=== PATIENT | female | born 1980 | race Caucasian/White ===

== ENCOUNTER 2019-09-03 15:34 | Emergency (ER) | payer BC ==
[2019-09-03 15:40] VITALS: BP 141/89; PULSE 73; TEMP 98; BMI 24.5
--- NOTE | 2019-09-03 16:02 | PDOC ---
History of Present Illness - General Chief Complaint: Migraine Headache Stated Complaint: Migraine Headache - History of Present Illness Initial Comments: The patient is a 39F with a significant past medical history of migraines and anxiety, who presents to the emergency department with, a migraine for 2 days. The pain is right sided, gradual onset, non-radiating, worsening, exacerbated by light, and not alleviated by her typical meds. She endorses associated NBNB emesis x3 and has persistent nausea. [facility] prodrome, described as change in depth perception/ perceived size of objects that lasts approximately 15 sec at a time. She takes topamax, effexor, candesartan Qhs, taken last night. Imitrex, Relpax, Decadron, Erecept, and 'nasal spray' with little relief today. 09/03/19 16:06 Past History - Past Medical History Allergies/Adverse Reactions: Allergies Allergy/AdvReac Type Severity Reaction Status Date / Time ciprofloxacin [From Cipro] Allergy Verified 09/03/19 15:38 Iodinated Contrast Media Allergy Verified 09/03/19 15:38 [Iodinated Contrast- Oral and IV Dye] prochlorperazine Allergy Verified 09/03/19 15:38 [From Compazine] Home Medications: Ambulatory Orders Acetaminophen/Caffeine/Butalb [Fioricet -] 1 tablet PO PRN PRN 06/26/18 Dexamethasone [Decadron -] 4 mg PO PRN PRN 06/26/18 Methocarbamol [Robaxin -] 500 mg PO BID 06/26/18 Sumatriptan Succinate [Imitrex -] 50 mg PO PRN PRN 06/26/18 Venlafaxine HCl [Effexor -] 100 mg PO HS 06/26/18 COPD: No Psychiatric Problems: Yes (anxeity) - Psycho Social/Smoking Cessation Hx Smoking History: Never smoked Have you smoked in the past 12 months: No Hx Alcohol Use: No Drug/Substance Use Hx: No Substance Use Type: None Review of Systems - Review of Systems Able to Perform ROS?: Yes Comments:: GENERAL/CONSTITUTIONAL: No fever or chills. No weakness HEAD, EYES, EARS, NOSE AND THROAT: No change in vision. No change in hearing. No sore throat CARDIOVASCULAR: No chest pain or shortness of breath RESPIRATORY: Denies cough, hemoptysis GASTROINTESTINAL: +N/V; denies diarrhea or constipation GENITOURINARY: No dysuria, frequency, or change in urination MUSCULOSKELETAL: No joint or muscle swelling or pain. No neck or back pain SKIN: No rash NEUROLOGIC: No vertigo, loss of consciousness, or change in strength/sensation ENDOCRINE: No increased thirst. No abnormal weight change HEMATOLOGIC/LYMPHATIC: No anemia, easy bleeding, or history of blood clots ALLERGIC/IMMUNOLOGIC: No hives or skin allergy 09/03/19 16:01 Is the patient limited [place] proficient: No *Physical Exam - Vital Signs Last Vital Signs Temp Pulse Resp BP Pulse Ox 98 F 73 18 141/89 100 09/03/19 15:35 09/03/19 15:35 09/03/19 15:35 09/03/19 15:35 09/03/19 15:35 - Physical Exam Comments: GENERAL: Awake, alert, and oriented to person/place/time, in no acute distress HEAD: No signs of trauma, normocephalic, atraumatic EYES: PERRLA, EOMI, sclera anicteric, conjunctiva clear ENT: Hearing grossly normal, nares patent, oropharynx clear without exudates. Moist mucosa LUNGS: No distress, speaks in full sentences, clear to auscultation bilaterally HEART: Regular rate and rhythm, normal S1 and S2, no murmurs appreciated, peripheral pulses normal and equal bilaterally ABDOMEN: Soft, nontender, normoactive bowel sounds. No guarding, no rebound EXTREMITIES: Normal inspection, Normal range of motion, no edema. No clubbing or cyanosis NEUROLOGICAL: Cranial nerves II through XII grossly intact. Normal speech, normal gait, no focal sensorimotor deficits SKIN: Warm, Dry 09/03/19 16:01 Medical Decision Making - Medical Decision Making The patient is a 38 year old female, with a significant past medical history of migraines and anxiety, who presents to the emergency department with, a migraine. ED Course Upreg IVF, Benadryl, Reglan, Ofirmev, Morphine, Zofran for symptomatic relief Pt placed in dark/quiet room Will reassess 09/03/19 16:09 Pt medicated Pt eloped from ED as she stated she has an emergency to attend. Pt refused to sign AMA form IV removed 09/03/19 18:16 Discharge - Discharge Information Problems reviewed: Yes Clinical Impression/Diagnosis: Headache Qualifiers: Headache type: unspecified Headache chronicity pattern: unspecified pattern Intractability: not intractable Qualified Code(s): R51 - Headache Condition: Stable Disposition: ELOPED - Admission No - Follow up/Referral - Patient Discharge Instructions Patient Printed Discharge Instructions: DI for Migraine Additional Instructions: You were seen in the Emergency Department for evaluation of headache. You were treated with IV fluids, Benadryl, Reglan, Morphine, Tylenol, and Zofran. Review the handout provided at discharge. Continue to take your medications as prescribed. Maintain your follow up with your primary care provider and your neurologist. Return to the Emergency Department if you develop changes in vision , persistent headache, sudden onset headache, nausea/vomiting, changes in strength/sensation, chest pain, trouble breathing, worsening symptoms, or any new/concerning symptoms. - Post Discharge Activity
[2019-09-03] MEDS ORDERED: SODIUM CHLORIDE 0.9% 500 ML INFUS.BAG IV ONE (16:17)
[2019-09-03] MEDS ORDERED: ONDANSETRON 4 MG/2 ML VIAL IVPUSH ONE (16:17)
[2019-09-03] MEDS ORDERED: METOCLOPRAMIDE HCL INJECTION 10 MG/2 ML VIAL IVPUSH ONE (16:17)
[2019-09-03] MEDS ORDERED: ACETAMINOPHEN 1000 MG/100 ML VIAL (NON FORMULARY) IVPB ONE (16:27)
[2019-09-03] MEDS ORDERED: morphine CARPU-JECT 4 MG/1 ML DISP.SYRIN IVPUSH ONE (16:27)
[2019-09-03] MEDS ORDERED: METOCLOPRAMIDE HCL INJECTION 10 MG/2 ML VIAL ONE (16:42)
[2019-09-03] MEDS ORDERED: morphine SULFATE 4 MG/ML VIAL ONE (16:43)
[2019-09-03] MEDS ORDERED: ONDANSETRON 4 MG/2 ML VIAL ONE (16:43)
[2019-09-03] MEDS ORDERED: ACETAMINOPHEN INJECTION 100 ML IVPB ONE (16:43)
--- NOTE | 2019-09-03 17:18 | PDOC ---
Documentation entered by Scott Garcia SCRIBE, acting as scribe for Louisa Taylor MD. Louisa Taylor MD: This documentation has been prepared by the Jose lynn Daniel, SCRIBE, under my direction and personally reviewed by me in its entirety. I confirm that the documentation accurately reflects all work, treatment, procedures, and medical decision making performed by me. Attending Attestation - Resident Resident Name: Shaquille Solo - ED Attending Attestation I have performed the following: I have examined & evaluated the patient, The case was reviewed & discussed with the resident, I agree w/resident's findings & plan, Exceptions are as noted - HPI HPI: 09/03/19 16:20 The patient is a 39 year old female with a past medical history of migraines (10 -15 a month) here today for evaluation of headache. The patient reports that her headache began last night gradually and describes it as right sided, pounding, and worsening. She also notes associated nausea, 3 episodes of vomiting, and photophobia. She reports that this is typical of her usual headaches. Patient denies lightheadedness, focal weakness and numbness, blurry vision, stiff neck. Denies fever, chills. Denies chest pain, shortness of breath. Denies urinary sxs. Allergies: ciprofloxacin, iodinated contrast media, prochlorperazine - Physicial Exam PE: 09/03/19 16:20 GENERAL: Awake, alert, and fully oriented, in no acute distress EYES: PERRLA, EOMI, sclera anicteric, conjunctiva clear ENT: Oropharynx clear without exudates. Moist mucosa NECK: Normal ROM, supple, no lymphadenopathy, JVD, or masses LUNGS: Breath sounds equal, clear to auscultation bilaterally. No wheezes, and no crackles HEART: Regular rate and rhythm, normal S1 and S2, no murmurs, rubs or gallops ABDOMEN: Soft, nontender, normoactive bowel sounds. No guarding, no rebound. No masses EXTREMITIES: Normal range of motion, no edema. No cords, erythema, or tenderness NEUROLOGICAL: Normal speech, cranial nerves intact, negative pronator drift, 5/ 5 strength in all 4 extremities, normal sensation to light touch in all 4 extremities, normal cerebellar exam, normal gait, normal tone SKIN: Warm, Dry, normal turgor, no rashes or lesions noted. - Medical Decision Making 09/03/19 16:00 39-year-old female with a history of migraines presents with a right-sided headache, typical of her migraines. She is neurologically intact Vitals unremarkable Requesting specifically IV reglan 10mg, benadryl 50mg, and morphine 4mg, states "this is the only thing that works for my migraines" Plan for upt, symptom control, reassess 09/03/19 17:30 Pt received several medications, per RN, headache completely resolved Pt told RN her son has been hurt and she needs to leave immediately Pt left ED while our team was in another room with a critical pt, before urine test resulted and before receiving DC paperwork IV was removed by RN PT glenn, was called at listed number x3 with no response
== END 2019-09-03 17:30 | disposition left against medical advice (07) ==
LOC: JER 15:34
PROC: 3E033NZ Introduction of Analgesics, Hypnotics, Sedatives into Peripheral Vein, Percutaneous Approach (ICD-10-PCS; principal; 2019-09-03)
PROC: 3E033GC Introduction of Other Therapeutic Substance into Peripheral Vein, Percutaneous Approach (ICD-10-PCS; 2019-09-03)
PROC: 3E033NZ Introduction of Analgesics, Hypnotics, Sedatives into Peripheral Vein, Percutaneous Approach (ICD-10-PCS; 2019-09-03)
PROC: 3E033GC Introduction of Other Therapeutic Substance into Peripheral Vein, Percutaneous Approach (ICD-10-PCS; 2019-09-03)
PROC: 3E033GC Introduction of Other Therapeutic Substance into Peripheral Vein, Percutaneous Approach (ICD-10-PCS; 2019-09-03)
DX: R51 Headache (principal); Z88.1 Allergy status to other antibiotic agents; Z88.8 Allergy status to other drugs, medicaments and biological substances; Z91.041 Radiographic dye allergy status
CPT/HCPCS: 99281-25; J0131

== ENCOUNTER 2019-12-31 11:30 | Emergency (ER) | payer BC ==
[2019-12-31 11:40] VITALS: BP 135/87; PULSE 74; TEMP 97.8; BMI 24.5
--- NOTE | 2019-12-31 11:47 | PDOC ---
History of Present Illness - General Chief Complaint: Headache Stated Complaint: HEADACHE Time Seen by Provider: 12/31/19 11:34 - History of Present Illness Initial Comments: 12/31/19 13:19 Chief complaint: Migraine headache HPI: Patient with a long history of migraines, on prophylactic medication, under the care of a neurologist. Recent job stress. Headache for 2 days, unresponsive to her usual medications including triptans, Decadron, and analgesics. Last headache was 2 months ago. Headaches which usual pattern, one -sided, accompanied by photophobia, nausea, and vomiting. No focal neurologic symptoms and gait is stable Review of systems: No fever/chills, URI symptoms, sore throat, cough, chest pain , shortness of breath, abdominal pain. Remainder of systems reviewed and negative Past medical history: Significant only for migraine headaches. 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 No tobacco. Social alcohol, none recently. No nonprescription drugs Family history: Reviewed and noncontributory including early coronary artery disease, metabolic diseases including diabetes, and cancer Physical exam: Alert and oriented x3, well-developed well-nourished, moderate distress due to headache, nausea Afebrile, vital signs normal PERRLA 4 mm, fundi benign, ENT clear Light sensitivity Neck supple without bruit mass or nodes Chest clear CV regular without murmur rub or gallop Abdomen soft nontender without mass organomegaly Neurological C2 to 12 intact. Strength full and symmetric. No focal sensorimotor deficits. Gait stable and unimpaired Impression: Migraine headache, fit usual pattern, no serious neurological symptoms Plan: Symptomatic treatment, observation, further evaluation depending on response to therapy. Past History - Past Medical History Allergies/Adverse Reactions: Allergies Allergy/AdvReac Type Severity Reaction Status Date / Time ciprofloxacin [From Cipro] Allergy Verified 12/31/19 11:31 Iodinated Contrast Media Allergy Verified 12/31/19 11:31 [Iodinated Contrast- Oral and IV Dye] prochlorperazine Allergy Verified 12/31/19 11:31 [From Compazine] Home Medications: Ambulatory Orders Acetaminophen/Caffeine/Butalb [Fioricet -] 1 tablet PO PRN PRN 06/26/18 Dexamethasone [Decadron -] 4 mg PO PRN PRN 06/26/18 Methocarbamol [Robaxin -] 500 mg PO BID 06/26/18 Venlafaxine HCl [Effexor -] 100 mg PO HS 06/26/18 Alprazolam [Xanax] 0.5 mg PO ASDIR PRN 12/31/19 Candesartan Cilexetil [Atacand (Nf) -] 8 mg PO HS 12/31/19 Dexamethasone [Decadron] 4 mg PO ASDIR 12/31/19 Eletriptan HBr [Relpax] 7 mg PO Q4H PRN 12/31/19 Sumatriptan Succinate [Imitrex Injection -] 6 mg SQ Q4H PRN 12/31/19 Topiramate [Topamax] 150 mg PO HS 12/31/19 Zolmitriptan [Zomig] 1 puff NS ASDIR 12/31/19 COPD: No Psychiatric Problems: Yes (anxiety) Other medical history: migraine headaches - Psycho Social/Smoking Cessation Hx Smoking History: Never smoked Have you smoked in the past 12 months: No Information on smoking cessation initiated: No Hx Alcohol Use: ("social") Drug/Substance Use Hx: No Substance Use Type: None *Physical Exam - Vital Signs Last Vital Signs Temp Pulse Resp BP Pulse Ox 97.8 F 74 18 135/87 100 12/31/19 11:30 12/31/19 11:30 12/31/19 11:30 12/31/19 11:30 12/31/19 11:30 Medical Decision Making - Medical Decision Making 12/31/19 13:55 Headache significantly improved. Less photophobia, nausea. No vomiting. Discharged fully alert, neurologically intact, ambulatory without difficulty, to follow-up with neurologist. Discharge - Discharge Information Problems reviewed: Yes Clinical Impression/Diagnosis: Migraine Qualifiers: Migraine type: with aura Status migrainosus presence: without status migrainosus Intractability: not intractable Qualified Code(s): G43.109 - Migraine with aura, not intractable, without status migrainosus Condition: Improved Disposition: HOME - Admission No - Follow up/Referral - Patient Discharge Instructions Patient Printed Discharge Instructions: DI for Migraine - Post Discharge Activity
[2019-12-31] MEDS ORDERED: SODIUM CHLORIDE 1,000 ML IV STA (11:48)
[2019-12-31] MEDS ORDERED: METOCLOPRAMIDE HCL INJECTION 10 MG/2 ML VIAL IVPUSH ONE (11:49)
[2019-12-31] MEDS ORDERED: morphine CARPU-JECT 4 MG/1 ML DISP.SYRIN IVPUSH ONE (11:52)
[2019-12-31] MEDS ORDERED: METOCLOPRAMIDE HCL INJECTION 10 MG/2 ML VIAL ONE (12:14)
[2019-12-31] MEDS ORDERED: morphine SULFATE 4 MG/ML VIAL ONE ×2 (12:14→13:00)
[2019-12-31] MEDS ORDERED: morphine CARPU-JECT 2 MG/1 ML DISP.SYRIN IVPUSH ONE (12:58)
== END 2019-12-31 14:10 | disposition home or self-care (01) ==
LOC: FER 11:30
PROC: 3E033GC Introduction of Other Therapeutic Substance into Peripheral Vein, Percutaneous Approach (ICD-10-PCS; principal; 2019-12-31)
PROC: 3E033NZ Introduction of Analgesics, Hypnotics, Sedatives into Peripheral Vein, Percutaneous Approach (ICD-10-PCS; 2019-12-31)
PROC: 3E0337Z Introduction of Electrolytic and Water Balance Substance into Peripheral Vein, Percutaneous Approach (ICD-10-PCS; 2019-12-31)
DX: G43.109 Migraine with aura, not intractable, without status migrainosus (principal); Z88.8 Allergy status to other drugs, medicaments and biological substances; Z91.041 Radiographic dye allergy status
CPT/HCPCS: 99284-25; J7030

== ENCOUNTER 2020-01-24 19:05 | Emergency (ER) | payer BC ==
[2020-01-24 19:24] VITALS: BMI 24.5
[2020-01-24] MEDS ORDERED: METOCLOPRAMIDE HCL INJECTION 10 MG/2 ML VIAL IVPUSH ONE (19:50)
[2020-01-24] MEDS ORDERED: SODIUM CHLORIDE 1,000 ML IV STA (19:51)
[2020-01-24] MEDS ORDERED: morphine CARPU-JECT 4 MG/1 ML DISP.SYRIN IVPUSH ONE (19:51)
[2020-01-24] MEDS ORDERED: morphine SULFATE 4 MG/ML VIAL ONE ×2 (20:08→20:58)
[2020-01-24] MEDS ORDERED: METOCLOPRAMIDE HCL INJECTION 10 MG/2 ML VIAL ONE (20:08)
[2020-01-24] MEDS ORDERED: morphine CARPU-JECT 2 MG/1 ML DISP.SYRIN IVPUSH ONE (20:48)
[2020-01-24 22:05] VITALS: BP 128/88; PULSE 66; TEMP 98
--- NOTE | 2020-01-24 22:06 | PDOC ---
*Physical Exam - Vital Signs Last Vital Signs Temp Pulse Resp BP Pulse Ox 98.5 F 70 18 131/86 100 01/24/20 19:06 01/24/20 19:06 01/24/20 19:06 01/24/20 19:06 01/24/20 19:06 ED Treatment Course - Medications Given in the ED: ED Medications Discontinued Medications Generic Name Dose Route Start Last Admin Trade Name Hannah PRN Reason Stop Dose Admin Diphenhydramine HCl 50 mg 01/24/20 19:51 01/24/20 20:13 Benadryl Injection - IVPUSH 01/24/20 19:52 50 mg ONCE ONE Administration Sodium Chloride 1,000 mls @ 1,000 mls/hr 01/24/20 19:51 01/24/20 20:06 Normal Saline - IV 01/24/20 20:50 1,000 mls/hr ASDIR STA Administration Metoclopramide HCl 10 mg 01/24/20 19:50 01/24/20 20:20 Reglan Injection - IVPUSH 01/24/20 19:51 10 mg ONCE ONE Administration Morphine Sulfate 4 mg 01/24/20 19:51 01/24/20 20:17 Morphine Injection - IVPUSH 01/24/20 19:52 4 mg ONCE ONE Administration Morphine Sulfate 2 mg 01/24/20 20:48 01/24/20 21:02 Morphine Injection - IVPUSH 01/24/20 20:49 2 mg ONCE ONE Administration Discharge - Discharge Information Problems reviewed: Yes Clinical Impression/Diagnosis: Migraine Qualifiers: Migraine type: with aura Status migrainosus presence: without status migrainosus Intractability: not intractable Qualified Code(s): G43.109 - Migraine with aura, not intractable, without status migrainosus Condition: Improved Disposition: HOME - Follow up/Referral - Patient Discharge Instructions Patient Printed Discharge Instructions: DI for Migraine Additional Instructions: continue medications as prescribed return to ER if you have recurrent persistent severe headache followup with your doctor within the next 5-7 days - Post Discharge Activity
--- NOTE | 2020-01-26 07:57 | PDOC ---
Documentation entered by Nancy Kaye SCRIBE, acting as scribe for Stu Moran MD. Stu Moran MD: This documentation has been prepared by the robinibeVargas Lincy, SCRIBE, under my direction and personally reviewed by me in its entirety. I confirm that the documentation accurately reflects all work, treatment, procedures, and medical decision making performed by me. History of Present Illness - General Chief Complaint: Migraine Headache Stated Complaint: MIGRAINE - History of Present Illness Initial Comments: 01/26/20 07:52 Chief complaint: Migraine HPI: Patient is well-known to the ER. Experiences migraines approximately once a month, same pattern, left-sided, with nausea, vomiting, and photophobia. No inciting factors are known. The patient is under the care of a neurologist, is on multiple prophylactic medications including monoclonal antibodies. None of her medication has been effective. She has had no fever/chills URI symptoms, sore throat, cough, chest pain, shortness of breath, abdominal pain, diarrhea, urinary tract symptoms, vaginal bleeding or discharge. Review of systems: As noted above. Otherwise reviewed and negative Past medical history: Negative except for migraines as noted above Social/family history reviewed and noncontributory. Physical exam: Alert and oriented well-developed well-nourished, with headache, but fully coherent, no confusion. Afebrile, vital signs normal PERRLA 4 mm, fundi benign, with sharp disc margins and good central venous pulsations, ENT clear. EOMs full without diplopia, visual franklin intact to confrontation. Neck supple without bruit mass or nodes Chest clear with full breath sounds bilaterally, no wheezes rales or rhonchi CV regular without murmur rub or gallop pulses full and symmetric no JVD or edema no bruits patient is not tachycardic Abdomen soft nontender without mass organomegaly Neurological C2 to 12 intact. Strength full and symmetric. No focal sensory or motor deficits. Gait stable and unimpaired Extremities no CCE Skin clear, no rash, adequate turgor and wet mucous membranes Impression: Migraine headache, typical pattern, no other neurological symptoms Plan: Analgesics, antiemetics, and observation. Past History - Past Medical History Allergies/Adverse Reactions: Allergies Allergy/AdvReac Type Severity Reaction Status Date / Time ciprofloxacin [From Cipro] Allergy Verified 01/24/20 19:11 Iodinated Contrast Media Allergy Verified 01/24/20 19:11 [Iodinated Contrast- Oral and IV Dye] prochlorperazine Allergy Verified 01/24/20 19:12 [From Compazine] Home Medications: Ambulatory Orders Acetaminophen/Caffeine/Butalb [Fioricet -] 1 tablet PO PRN PRN 06/26/18 Dexamethasone [Decadron -] 4 mg PO PRN PRN 06/26/18 Methocarbamol [Robaxin -] 500 mg PO BID 06/26/18 Venlafaxine HCl [Effexor -] 100 mg PO HS 06/26/18 Alprazolam [Xanax] 0.5 mg PO ASDIR PRN 12/31/19 Candesartan Cilexetil [Atacand (Nf) -] 8 mg PO HS 12/31/19 Dexamethasone [Decadron] 4 mg PO ASDIR 12/31/19 Eletriptan HBr [Relpax] 7 mg PO Q4H PRN 12/31/19 Sumatriptan Succinate [Imitrex Injection -] 6 mg SQ Q4H PRN 12/31/19 Topiramate [Topamax] 150 mg PO HS 12/31/19 Zolmitriptan [Zomig] 1 puff NS ASDIR 12/31/19 COPD: No Psychiatric Problems: Yes (anxiety) Other medical history: migraine - Psycho Social/Smoking Cessation Hx Smoking History: Never smoked Have you smoked in the past 12 months: No Information on smoking cessation initiated: No Hx Alcohol Use: No Drug/Substance Use Hx: No Substance Use Type: None *Physical Exam - Vital Signs Last Vital Signs Temp Pulse Resp BP Pulse Ox 98.5 F 70 18 131/86 100 01/24/20 19:06 01/24/20 19:06 01/24/20 19:06 01/24/20 19:06 01/24/20 19:06 Medical Decision Making - Medical Decision Making 01/26/20 07:56 Patient much improved with medication. Continue observation. Signed out to Dr. Hernandez at 7 PM pending further medical evaluation. Patient clinically and hemodynamically stable, headache is much improved. Discharge - Discharge Information Problems reviewed: Yes Clinical Impression/Diagnosis: Migraine Qualifiers: Migraine type: with aura Status migrainosus presence: without status migrainosus Intractability: not intractable Qualified Code(s): G43.109 - Migraine with aura, not intractable, without status migrainosus Condition: Improved Disposition: HOME - Follow up/Referral - Patient Discharge Instructions Patient Printed Discharge Instructions: DI for Migraine Additional Instructions: continue medications as prescribed return to ER if you have recurrent persistent severe headache followup with your doctor within the next 5-7 days - Post Discharge Activity
== END 2020-01-24 22:13 | disposition home or self-care (01) ==
LOC: FER 19:05
PROC: 3E033NZ Introduction of Analgesics, Hypnotics, Sedatives into Peripheral Vein, Percutaneous Approach (ICD-10-PCS; principal; 2020-01-24)
PROC: 3E0337Z Introduction of Electrolytic and Water Balance Substance into Peripheral Vein, Percutaneous Approach (ICD-10-PCS; 2020-01-24)
DX: G43.109 Migraine with aura, not intractable, without status migrainosus (principal); F41.9 Anxiety disorder, unspecified
CPT/HCPCS: 99284-25; J7030

== ENCOUNTER 2020-05-07 17:13 | Emergency (ER) | payer BC ==
[2020-05-07 17:19] VITALS: BP 127/86; PULSE 63; TEMP 98.2; BMI 25.4
[2020-05-07] MEDS ORDERED: morphine CARPU-JECT 4 MG/1 ML DISP.SYRIN IVPUSH ONE (17:28)
[2020-05-07] MEDS ORDERED: SODIUM CHLORIDE 1,000 ML IV STA (17:28)
[2020-05-07] MEDS ORDERED: METOCLOPRAMIDE HCL INJECTION 10 MG/2 ML VIAL IVPB ONE (17:28)
[2020-05-07] MEDS ORDERED: METOCLOPRAMIDE HCL INJECTION 10 MG/2 ML VIAL ONE (17:32)
[2020-05-07] MEDS ORDERED: morphine SULFATE 4 MG/ML VIAL ONE (17:32)
== END 2020-05-07 18:30 | disposition home or self-care (01) ==
LOC: FER 17:13
PROC: 3E033GC Introduction of Other Therapeutic Substance into Peripheral Vein, Percutaneous Approach (ICD-10-PCS; principal; 2020-05-07)
PROC: 3E0337Z Introduction of Electrolytic and Water Balance Substance into Peripheral Vein, Percutaneous Approach (ICD-10-PCS; principal; 2020-05-07)
DX: G43.901 Migraine, unspecified, not intractable, with status migrainosus (principal)
CPT/HCPCS: 99284-25

== ENCOUNTER 2020-06-02 17:12 | Emergency (ER) | payer BC ==
[2020-06-02 17:23] VITALS: TEMP 98.9; BMI 25.3
[2020-06-02] MEDS ORDERED: METOCLOPRAMIDE HCL INJECTION 10 MG/2 ML VIAL IVPB ONE (17:33)
[2020-06-02] MEDS ORDERED: morphine CARPU-JECT 4 MG/1 ML DISP.SYRIN IVPUSH ONE ×2 (17:33→18:25)
[2020-06-02] MEDS ORDERED: ACETAMINOPHEN 1000 MG/100 ML VIAL (NON FORMULARY) IVPB ONE (17:33)
[2020-06-02] MEDS ORDERED: SODIUM CHLORIDE 0.9% 1000 ML INFUS.BAG IV ONE (17:33)
[2020-06-02] MEDS ORDERED: morphine SULFATE 4 MG/ML VIAL ONE ×2 (17:43→18:26)
[2020-06-02] MEDS ORDERED: METOCLOPRAMIDE HCL INJECTION 10 MG/2 ML VIAL ONE (17:44)
--- NOTE | 2020-06-02 18:34 | PDOC ---
Documentation entered by Merly Law SCRIBE, acting as scribe for Rayray Todd MD. Rayray Todd MD: This documentation has been prepared by the robinibeThanh Maria, SCRIBE, under my direction and personally reviewed by me in its entirety. I confirm that the documentation accurately reflects all work, treatment, procedures, and medical decision making performed by me. History of Present Illness - General Chief Complaint: Migraine Headache Stated Complaint: migraine headache Time Seen by Provider: 06/02/20 17:18 History Source: Patient Exam Limitations: No Limitations - History of Present Illness Initial Comments: 06/02/20 17:38 The patient is a 40 year old female with a significant past medical history of migraines who presents to the ED with a migraine since yesterday. Patient describes her pain as a left-sided pulsating/pounding sensation with associated photophobia. Patient notes she is on multiple prophylactic medications incl uding monoclonal antibodies. Denies any recent trauma. She denies any recent illness. Denies any recent nausea, vomiting, or diarrhea. Past History - Medical History Allergies/Adverse Reactions: Allergies Allergy/AdvReac Type Severity Reaction Status Date / Time ciprofloxacin [From Cipro] Allergy Verified 06/02/20 18:00 Iodinated Contrast Media Allergy Verified 06/02/20 18:00 [Iodinated Contrast- Oral and IV Dye] prochlorperazine Allergy Verified 06/02/20 18:00 [From Compazine] Home Medications: Ambulatory Orders Butalb/Acetaminophen/Caffeine [Fioricet 50-300-40 mg Capsule] 1 each PO ASDIR PRN 04/04/20 Candesartan Cilexetil [Atacand] 8 mg PO HS 04/04/20 Dexamethasone [Decadron -] 12 mg PO ASDIR PRN 04/04/20 Eletriptan HBr [Relpax] 40 mg PO ASDIR PRN 04/04/20 Fremanezumab-Vfrm [Ajovy] 225 mg SQ MONTHLY 04/04/20 Nurtec 1 tab PO ASDIR PRN 04/04/20 Reyvow 1 tab PO ASDIR PRN 04/04/20 Sumatriptan Succinate [Imitrex] 4 mg SQ PRN PRN 04/04/20 Topiramate [Topamax] 150 mg PO DAILY 04/04/20 Venlafaxine HCl [Effexor -] 150 mg PO HS 04/04/20 COPD: No Psychiatric Problems: Yes (anxiety) - Psycho-Social/Smoking History Smoking History: Never smoked Have you smoked in the past 12 months: No Review of Systems - Review of Systems Able to Perform ROS?: Yes Comments:: 06/02/20 17:38 A complete review of 10 out of 10 review of systems is taken and is negative apart from what is previously mentioned below and in the HPI. *Physical Exam - Physical Exam 06/02/20 17:38 Vitals: Triage Vital signs reviewed General Appearance: no acute distress, well nourished well developed, Head: Atraumatic, normocephalic Eyes: Pupils equal reactive round, extraocular movement intact Cardiac: Regular rate and rhythm, no murmurs, no rubs, no gallops, Lungs: Clear to auscultation bilateral, good air movement bilaterally, Rectal: Exam deferred Extremities: Full range of motion to all extremities, no cyanosis, clubbing, or edema Skin: Warm and dry, no rashes or lesions, no petechiae Neuro: AOX3; Cranial Nerves 2-12 grossly c intact, Strength intact to all extremities, Sensation intact to all extremities, gait normal Medical Decision Making - Medical Decision Making 06/02/20 18:33 40 years old with past medical history significant for chronic migraines on multiple migraine medications occasionally gets migraines that do not respond to her home medication regimen Comes to the emergency department complaining of 8 out of 10 left-sided headache consistent with typical migraines. No red flags in patient's history no fever no headache that is new or different no trauma no weakness numbness or visual changes symptoms are severe persistent constant exacerbated by light no alleviating factors In the emergency department patient received her "typical" cocktail including Benadryl Reglan and morphine Reevaluation 615 patient feels much better requesting 1 additional dose of morphine Reevaluation 630 patient feels better will discharge home with neurology follow- up Findings, the need for follow-up and strict return instructions discussed with patient. Discharge - Discharge Information Problems reviewed: Yes Clinical Impression/Diagnosis: Migraine Qualifiers: Migraine type: other Status migrainosus presence: without status migrainosus Intractability: not intractable Qualified Code(s): G43.809 - Other migraine, not intractable, without status migrainosus Condition: Stable Disposition: HOME - Admission No - Follow up/Referral Referrals: Aubrey Cronin MD [Staff Physician] - - Patient Discharge Instructions Patient Printed Discharge Instructions: Migraine -- Adult Additional Instructions: Take all home medications as prescribed. Follow-up with Dr. Adam Stark this week. Return to ED for any uncontrollable symptoms or for any concerns. - Post Discharge Activity
[2020-06-02 18:42] VITALS: BP 116/71; PULSE 66
== END 2020-06-02 19:09 | disposition home or self-care (01) ==
LOC: FER 17:12
PROC: 3E033GC Introduction of Other Therapeutic Substance into Peripheral Vein, Percutaneous Approach (ICD-10-PCS; principal; 2020-06-02)
DX: G43.809 Other migraine, not intractable, without status migrainosus (principal)
CPT/HCPCS: 99284-25

== ENCOUNTER 2020-07-16 22:44 | Emergency (ER) | payer BC ==
[2020-07-16 23:02] VITALS: BP 127/82; PULSE 69; TEMP 98; BMI 25.4
[2020-07-16] MEDS ORDERED: morphine CARPU-JECT 4 MG/1 ML DISP.SYRIN IVPUSH ONE (23:53)
[2020-07-17] MEDS ORDERED: morphine SULFATE 4 MG/ML VIAL ONE
[2020-07-17] MEDS: morphine CARPU-JECT 4 MG/1 ML DISP.SYRIN IM ONE ×2 (00:02→00:19)
--- NOTE | 2020-07-17 00:07 | PDOC ---
Documentation entered by Nancy Kaye SCRIBE, acting as scribe for Iain Dao MD. Iain Dao MD: This documentation has been prepared by the robinibe, Nancy Kaye SCRIBE, under my direction and personally reviewed by me in its entirety. I confirm that the documentation accurately reflects all work, treatment, procedures, and medical decision making performed by me. History of Present Illness - General Chief Complaint: Migraine Headache Stated Complaint: MIGRAINE Time Seen by Provider: 07/16/20 22:53 History Source: Patient Exam Limitations: No Limitations - History of Present Illness Initial Comments: 07/17/20 00:04 This is a 40-year-old female who comes in complaining of her typical migraine headache. Headache is frontal primarily and throbbing in nature. Patient has taken all of her medications as well as all of her rescue medications without relief and comes in for evaluation. Patient said there is nothing atypical about it and there is no neck stiffness or fevers. Patient comes in ED approximately once to twice a month for her migraines. Allergies: as per nursing notes Past Medical History: As per HPI Social history: Lives with family. No smoking. No alcohol. No illicit drugs. Surgical history: None General: No fevers or chills, no weakness, no weight loss HEENT: No change in vision. No sore throat,. No ear pain CardioVascular: no chest discomfort. No shortness of breath Respiratory:No cough, or wheezing. Gastrointestinal: no nausea, vomiting, diarrhea or constipation, No rectal bleeding Genitourinary: No dysuria, hematuria, or frequency Musculoskeletal: No joint or muscle pain or swelling Neurologic: + Migraine headache, no vertigo, dizziness or loss of consciousness Psychiatric: nor depression Skin: No rashes or easy bruising Endocrine: no increased thirst or abnormal weight change Allergic: no skin or latex allergy All other systems reviewed and normal GENERAL: The patient is awake, alert, and fully oriented, in no acute distress. HEENT:Head is normal with no signs of trauma. Eyes: Pupils equal, round and reactive to light, Ears, and Throat are normal. Neck is supple. No Lymphadenopathy. EXTREMITIES:atraumatic, Normal range of motion, no edema. NEUROLOGICAL: Normal speech, normal gait. PSYCH: Normal mood, normal affect. SKIN: Warm, Dry, normal turgor, no rashes or lesions noted. Assessment and plan: This is a 40-year-old female with her typical migraine. Patient's migraines responded to Benadryl and morphine. Patient was given 50 mg of Benadryl and morphine. Patient will be observed for 4 hours as she does not have anyone to take her home. Patient will walk home at the end of the 4 hours. Shortly after meds were ordered as I am patient decided that she wanted them IV instead of IM when she was told they would be given IM only patient decided she did not want the medication and requested discharge Past History - Medical History Allergies/Adverse Reactions: Allergies Allergy/AdvReac Type Severity Reaction Status Date / Time ciprofloxacin [From Cipro] Allergy Verified 07/16/20 22:46 Iodinated Contrast Media Allergy Verified 07/16/20 22:46 [Iodinated Contrast- Oral and IV Dye] prochlorperazine Allergy Verified 07/16/20 22:46 [From Compazine] Home Medications: Ambulatory Orders Butalb/Acetaminophen/Caffeine [Fioricet 50-300-40 mg Capsule] 1 each PO ASDIR PRN 04/04/20 Candesartan Cilexetil [Atacand] 8 mg PO DAILY 04/04/20 Dexamethasone [Decadron -] 12 mg PO ASDIR PRN 04/04/20 Eletriptan HBr [Relpax] 40 mg PO ASDIR PRN 04/04/20 Fremanezumab-Vfrm [Ajovy] 225 mg SQ MONTHLY 04/04/20 Nurtec 75 mg PO ASDIR PRN 04/04/20 Reyvow 1 tab PO ASDIR PRN 04/04/20 Sumatriptan Succinate [Imitrex] 4 mg SQ PRN PRN 04/04/20 Topiramate [Topamax] 100 mg PO DAILY 04/04/20 Venlafaxine HCl [Effexor -] 100 mg PO DAILY 04/04/20 COPD: No Psychiatric Problems: Yes (anxiety) - Psycho-Social/Smoking History Smoking History: Never smoked Have you smoked in the past 12 months: No Discharge - Discharge Information Problems reviewed: Yes Clinical Impression/Diagnosis: Drug-seeking behavior Migraine Qualifiers: Migraine type: without aura Status migrainosus presence: without status migrainosus Intractability: not intractable Qualified Code(s): G43.009 - Migraine without aura, not intractable, without status migrainosus Condition: Stable Disposition: HOME - Admission No - Follow up/Referral - Patient Discharge Instructions Additional Instructions: Return to the emergency department immediately with ANY new, persistent or worsening symptoms. Continue any medications as previously prescribed by your physician. You should follow up with your primary doctor as soon as possible regarding today's emergency department visit. . Please make sure your doctor reviews the results of your emergency evaluation. Thank you for coming to the Emergency Department today for your care. It was a pleasure to see you today. Please note that your evaluation is INCOMPLETE until you follow-up with your doctor. - Post Discharge Activity
== END 2020-07-17 00:23 | disposition home or self-care (01) ==
LOC: FER 22:44
PROC: 3E023NZ Introduction of Analgesics, Hypnotics, Sedatives into Muscle, Percutaneous Approach (ICD-10-PCS; principal; 2020-07-16)
PROC: 3E033GC Introduction of Other Therapeutic Substance into Peripheral Vein, Percutaneous Approach (ICD-10-PCS; 2020-07-16)
DX: G43.009 Migraine without aura, not intractable, without status migrainosus (principal); Z76.5 Malingerer [conscious simulation]
CPT/HCPCS: 99284-25

== ENCOUNTER 2020-07-19 20:26 | Emergency (ER) | payer BC ==
[2020-07-19 20:38] VITALS: BP 127/86; PULSE 80; TEMP 98; BMI 25.4
[2020-07-19] MEDS ORDERED: SODIUM CHLORIDE 1,000 ML IV STA (21:27)
[2020-07-19] MEDS ORDERED: METOCLOPRAMIDE HCL INJECTION 10 MG/2 ML VIAL IVPB ONE (21:27)
[2020-07-19] MEDS ORDERED: METOCLOPRAMIDE HCL INJECTION 10 MG/2 ML VIAL ONE (21:30)
--- NOTE | 2020-07-19 22:12 | PDOC ---
Documentation entered by Preston Lang SCRIBE, acting as scribe for Garry Ellington MD. Garry Ellington MD: This documentation has been prepared by the Precious lynn Angel, SCRIBE, under my direction and personally reviewed by me in its entirety. I confirm that the documentation accurately reflects all work, treatment, procedures, and medical decision making performed by me. History of Present Illness - General Chief Complaint: Migraine Headache Stated Complaint: MIGRAINE Time Seen by Provider: 07/19/20 20:27 History Source: Patient Exam Limitations: No Limitations - History of Present Illness Initial Comments: 07/19/20 22:08 The patient is a 40 year old female with a significant past medical history of migraines who presents to the ED with a migraine for a few days. The patient describes the migraine as a pulsing/pounding sensation mainly on the left side of her head. The patient was recently here in the ED for similar symptoms but eloped. The patient states she contacted her Neurologist who increased her daily doses of Topamax and Effexor which did not help. The patient also reports 2 episodes of NBNB vomiting. The patient notes taking imitrex, decadron, tylenol, motrin with no relief as well. The patient denies any fever/chills, diarrhea or any other symptoms here in the ED. States this feels the same as her usual migraines. Pt is requesting IV benadryl, morphine, and reglan for her migraine. Past History - Medical History Allergies/Adverse Reactions: Allergies Allergy/AdvReac Type Severity Reaction Status Date / Time ciprofloxacin [From Cipro] Allergy Verified 07/16/20 22:46 Iodinated Contrast Media Allergy Verified 07/16/20 22:46 [Iodinated Contrast- Oral and IV Dye] prochlorperazine Allergy Verified 07/16/20 22:46 [From Compazine] Home Medications: Ambulatory Orders Butalb/Acetaminophen/Caffeine [Fioricet 50-300-40 mg Capsule] 1 each PO ASDIR PRN 04/04/20 Dexamethasone [Decadron -] 12 mg PO ASDIR PRN 04/04/20 Nurtec 75 mg PO ASDIR PRN 04/04/20 Reyvow 1 tab PO ASDIR PRN 04/04/20 Sumatriptan Succinate [Imitrex] 4 mg SQ PRN PRN 04/04/20 Topiramate [Topamax] 100 mg PO DAILY 04/04/20 Venlafaxine HCl [Effexor -] 100 mg PO DAILY 04/04/20 Candesartan Cilexetil [Atacand (Nf) -] 8 mg PO DAILY 07/19/20 COPD: No Psychiatric Problems: Yes (anxiety) - Psycho-Social/Smoking History Smoking History: Never smoked Have you smoked in the past 12 months: No Review of Systems - Review of Systems Able to Perform ROS?: Yes Comments:: 07/19/20 22:08 GENERAL/CONSTITUTIONAL: No fever or chills. No weakness. HEAD, EYES, EARS, NOSE AND THROAT: No change in vision. No ear pain or dis charge. No sore throat. CARDIOVASCULAR: No chest pain, no shortness of breath, no loss of consciousness RESPIRATORY: No cough, wheezing, or hemoptysis. GASTROINTESTINAL:+Nausea/ vomiting. No diarrhea or constipation. GENITOURINARY: No dysuria, frequency, or change in urination. MUSCULOSKELETAL: No joint or muscle swelling or pain. No neck or back pain. SKIN: No rash NEUROLOGIC:+Headache. No vertigo, no change in strength/sensation. ENDOCRINE: No increased thirst. No abnormal weight change. HEMATOLOGIC/LYMPHATIC: No anemia, easy bleeding, or history of blood clots. ALLERGIC/IMMUNOLOGIC: No hives or skin allergy. *Physical Exam - Physical Exam 07/19/20 22:14 "GENERAL: Awake, alert, and fully oriented, in no acute distress. HEAD: No signs of trauma EYES: PERRLA, EOMI, sclera anicteric, conjunctiva clear ENT: Auricles normal inspection, hearing grossly normal, nares patent, oropharynx clear without exudates. Moist mucosa NECK: Nontender, no stepoffs, Normal ROM, supple, no lymphadenopathy, JVD, or masses LUNGS: Breath sounds equal, clear to auscultation bilaterally. No wheezes, and no crackles HEART: Regular rate and rhythm, normal S1 and S2, no murmurs, rubs or gallops ABDOMEN: Soft, nontender, normoactive bowel sounds. No guarding, no rebound. No masses EXTREMITIES: Normal range of motion, no edema. No clubbing or cyanosis. No cords, erythema, or tenderness NEUROLOGICAL: Cranial nerves II through XII intact. 5/5 strength and sensation in all extremities, Normal speech, normal gait, normal cerebellar function SKIN: Warm, Dry, normal turgor, no rashes or lesions noted. Medical Decision Making - Medical Decision Making 07/19/20 22:14 40 F here for migraine. Very well appearing with normal exam. Requesting morphine and benadryl for pain. I discussed with pt other treatment options besides narcotics and offered her IV reglan and benadryl to start with. I offered to call her neurologist, but pt gave me a non-functioning phone number. When pt was informed that she would not be receiving narcotics from me, she eloped from the ED, stating that her son was sick at home. Pt was clinically sober, well appearing, and appeared to have capacity to make decisions. Discharge - Discharge Information Problems reviewed: Yes Clinical Impression/Diagnosis: Eloped from emergency department, Migraine, Drug-seeking behavior Condition: Stable Disposition: ELOPED - Follow up/Referral - Patient Discharge Instructions - Post Discharge Activity
== END 2020-07-19 21:52 | disposition left against medical advice (07) ==
LOC: FER 20:26
PROC: 3E033GC Introduction of Other Therapeutic Substance into Peripheral Vein, Percutaneous Approach (ICD-10-PCS; principal; 2020-07-19)
PROC: 3E0337Z Introduction of Electrolytic and Water Balance Substance into Peripheral Vein, Percutaneous Approach (ICD-10-PCS; 2020-07-19)
DX: G43.909 Migraine, unspecified, not intractable, without status migrainosus (principal)
CPT/HCPCS: 99284-25

== ENCOUNTER → 2020-08-05 | Emergency (ER) | payer BC ==
--- NOTE | 2020-08-05 13:22 | PDOC ---
History of Present Illness - General Chief Complaint: Migraine Headache Stated Complaint: MIGRAINE History Source: Patient - History of Present Illness Initial Comments: 08/05/20 13:29 Pt presents to the ED complaining if frontal headache which is similar to her chronic migraine. Patient has a history of migraines since age 2. on multiple migraine medications, both daily medications and rescue medications. Patient states that she took all of her rescue medications and failed them. also complains of a single episode of nausea and non bilious, non bloody vomiting. Patient also reports having her aura, which she describes as "[place] Syndrome". denies fever, other neurologic symptoms, passing out. Patient has a primary neurologist who she has not called to discuss these symptoms. Patient has been seen in the ED in the past and eloped when she was not given narcotics. Past History - Medical History Allergies/Adverse Reactions: Allergies Allergy/AdvReac Type Severity Reaction Status Date / Time ciprofloxacin [From Cipro] Allergy Verified 08/05/20 13:21 Iodinated Contrast Media Allergy Verified 08/05/20 13:21 [Iodinated Contrast- Oral and IV Dye] prochlorperazine Allergy Verified 08/05/20 13:21 [From Compazine] Home Medications: Ambulatory Orders Butalb/Acetaminophen/Caffeine [Fioricet 50-300-40 mg Capsule] 1 each PO ASDIR PRN 04/04/20 Dexamethasone [Decadron -] 12 mg PO ASDIR PRN 04/04/20 Nurtec 75 mg PO ASDIR PRN 04/04/20 Reyvow 1 tab PO ASDIR PRN 04/04/20 Sumatriptan Succinate [Imitrex] 4 mg SQ PRN PRN 04/04/20 Topiramate [Topamax] 100 mg PO DAILY 04/04/20 Venlafaxine HCl [Effexor -] 100 mg PO DAILY 04/04/20 Candesartan Cilexetil [Atacand (Nf) -] 8 mg PO DAILY 07/19/20 COPD: No Psychiatric Problems: Yes (anxiety) - Psycho-Social/Smoking History Smoking History: Never smoked Have you smoked in the past 12 months: No Review of Systems - Review of Systems Able to Perform ROS?: Yes Is the patient limited Turkmen proficient: No Constitutional: No: Symptoms Reported, See HPI, Chills, Diaphoresis, Fever, Loss of Appetite, Malaise, Night Sweats, Weakness, Weight Stable, Unintentional Wgt. Loss, Unexplained wgt Loss, Other HEENTM: No: Symptoms Reported, See HPI, Eye Pain, Blurred Vision, Tearing, Recent change in vision, Double Vision, Cataracts, Ear Pain, Ocular Prothesis, Ear Discharge, Nose Pain, Nose Congestion, Tinnitus, Nose Bleeding, Hearing Loss, Throat Pain, Throat Swelling, Mouth Pain, Dental Problems, Difficulty Swallowing, Mouth Swelling, Other Respiratory: No: Symptoms reported, See HPI, Cough, Orthopnea, Shortness of Breath, SOB with Exertion, SOB at Rest, Stridor, Wheezing, Productive cough, Hemoptysis, Other Cardiac (ROS): No: Symptoms Reported, See HPI, Chest Pain, Edema, Irregular Heart Rate, Lightheadedness, Palpitations, Syncope, Chest Tightness, Other ABD/GI: Yes: Nausea, Vomiting. No: Symptoms Reported, See HPI, Abdominal Distended, Abd. Pain w/ defecation, Blood Streaked Bowels, Constipated, Diarrhea, Difficulty Swallowing, Poor Appetite, Poor Fluid Intake, Rectal Bleeding, Indigestion, Abdominal cramping, Tarry Stools, Other : No: Symptoms Reported, See HPI, Burning, Dysuria, Discharge, Frequency, Flank Pain, Hematuria, Incontinence, Pain, Urgency, Testicular Mass, Testicular Swelling, Lesions, Testicular Pain, Other Integumentary: No: Symptoms Reported, See HPI, Bruising, Change in Color, Change in Hair/Nails, Dryness, Erythema, Flushing, Lesions, Lumps, Pallor, Pruritus, Rash, Sweating, Other Neurological: Yes: Headache. No: Symptoms reported, See HPI, Numbness, Paresthesia, Pre-Existing Deficit, Seizure, Tingling, Tremors, Weakness, Unsteady Gait, Ataxia, Dizziness, Other *Physical Exam - Physical Exam 08/05/20 13:52 gen: alert, NAD HEENT: normocephalic, atraumatic CV: rrr no m/r/g Pulm: CTA B/l Abdomen: soft, non tender non distended neuro: alert and oriented x 3. CN 2-12 intact. ambulatory in the ED with normal gait. Medical Decision Making - Medical Decision Making 08/05/20 13:54 Pt presents to the ED complaining of typical migraine. Offered reglan and benadryl for analgesia, but requesitng morphine. When informed by me that she would not get morphine, patient eloped from the ED. She understood that she could remain for evaluation and non narcotic treatment. Discharge - Discharge Information Problems reviewed: Yes Clinical Impression/Diagnosis: Migraine Condition: Good Disposition: ELOPED - Follow up/Referral - Patient Discharge Instructions - Post Discharge Activity
[2020-08-05 13:33] VITALS: BP 116/67; PULSE 74; TEMP 99.7; BMI 25.4
== END | disposition left against medical advice (07) ==
LOC: FER 13:20
DX: G43.909 Migraine, unspecified, not intractable, without status migrainosus (principal)
CPT/HCPCS: 99282-25

== ENCOUNTER 2020-09-01 16:13 | Emergency (ER) | payer BC ==
[2020-09-01 16:23] VITALS: BP 123/77; PULSE 84; TEMP 98.6; BMI 25.4
[2020-09-01] MEDS ORDERED: METOCLOPRAMIDE HCL INJECTION 10 MG/2 ML VIAL IVPUSH ONE (16:29)
--- NOTE | 2020-09-01 16:42 | PDOC ---
History of Present Illness - General Chief Complaint: Migraine Headache Stated Complaint: MIGRAINE History Source: Patient Exam Limitations: No Limitations - History of Present Illness Initial Comments: 09/01/20 16:34 40 yo F h/o migraines p/w L sided headache, throbbing, similar to typical migraines. Gradual in onset. No preceding trauma. +photophobia/phonophobia. 2 episodes of vomiting earlier today and reports mild nausea at present time. Also reports her usual aura "[place] syndrome" earlier today. States she felt the headache coming on yesterday .Tried all her rescue medications at home with insufficient relief. Of note, patient has multiple visits to the ED where she eloped when she was told she would not receive narcotics or when she was offered narcotics IM instead of IV. Past History - Medical History Allergies/Adverse Reactions: Allergies Allergy/AdvReac Type Severity Reaction Status Date / Time ciprofloxacin [From Cipro] Allergy Verified 08/05/20 13:21 Iodinated Contrast Media Allergy Verified 08/05/20 13:21 [Iodinated Contrast- Oral and IV Dye] prochlorperazine Allergy Verified 08/05/20 13:21 [From Compazine] Home Medications: Ambulatory Orders Butalb/Acetaminophen/Caffeine [Fioricet 50-300-40 mg Capsule] 1 each PO ASDIR PRN 04/04/20 Dexamethasone [Decadron -] 12 mg PO ASDIR PRN 04/04/20 Nurtec 75 mg PO ASDIR PRN 04/04/20 Reyvow 1 tab PO ASDIR PRN 04/04/20 Sumatriptan Succinate [Imitrex] 4 mg SQ PRN PRN 04/04/20 Topiramate [Topamax] 100 mg PO DAILY 04/04/20 Venlafaxine HCl [Effexor -] 100 mg PO DAILY 04/04/20 Candesartan Cilexetil [Atacand (Nf) -] 8 mg PO DAILY 07/19/20 COPD: No Psychiatric Problems: Yes (anxiety) - Reproductive History Is Patient Now?: No - Immunization History Immunization Up to Date: Yes - Psycho-Social/Smoking History Smoking History: Never smoked Have you smoked in the past 12 months: No Information on smoking cessation initiated: No - Substance Abuse Hx (Audit-C & DAST Scrn) How often the patient has a drink containing alcohol: Monthly or less Number of drinks the patient has on a typical day: 1 or 2 How often the patient has six or more drinks on one occasion: Never Score: In Men: 4 or > Positive; In Women: 3 or > Positive: 1 Screen Result (Pos requires Nsg. Audit-10AR): Negative In the last yr the pt used illegal drug/Rx for NonMed reason: No Score: Yes response is considered Positive: 0 Screen Result (Positive result requires Nsg. DAST-10): Negative Review of Systems - Review of Systems Able to Perform ROS?: Yes Comments:: 09/01/20 16:42 GENERAL/CONSTITUTIONAL: No fever or chills. No weakness. HEAD, EYES, EARS, NOSE AND THROAT: No change in vision. No ear pain or discharge. No sore throat. CARDIOVASCULAR: No chest pain or shortness of breath. RESPIRATORY: No cough, wheezing, or hemoptysis. GASTROINTESTINAL: + nausea, vomiting, no diarrhea or constipation. GENITOURINARY: No dysuria, frequency, or change in urination. MUSCULOSKELETAL: No joint or muscle swelling or pain. No neck or back pain. SKIN: No rash. NEUROLOGIC: as per HPI ENDOCRINE: No increased thirst. No abnormal weight change. HEMATOLOGIC/LYMPHATIC: No anemia, easy bleeding, or history of blood clots. ALLERGIC/IMMUNOLOGIC: No hives or skin allergy. *Physical Exam - Vital Signs Last Vital Signs Temp Pulse Resp BP Pulse Ox 98.6 F 84 18 123/77 100 09/01/20 16:14 09/01/20 16:14 09/01/20 16:14 09/01/20 16:14 09/01/20 16:14 - Physical Exam 09/01/20 16:43 GENERAL: Well appearing, in no acute distress HEENT: NCAT, conjunctiva not injected, MMM, EOMI, no nystagmus NECK: Normal ROM, supple LUNGS: CTAB. Good air entry. No wheezes, No Rhonchi and no crackles HEART: RRR, + s1 s2, no murmurs, rubs or gallops ABDOMEN: Soft, nontender, normoactive bowel sounds. No guarding, no rebound. No masses BACK: no midline or paraspinal tenderness. EXTREMITIES: Warm and well perfused. No LE edema. FROM. NEUROLOGICAL: Aox3, Speech fluent, face symmetric. Sensation grossly intact to light touch. Ambulatory with steady gait. Strength intact. No focal deficits. SKIN: Warm, dry, normal turgor, no rashes or lesions noted. Medical Decision Making - Medical Decision Making 09/01/20 16:44 40 yo F h/o migraines p/w headache typical of her usual migraines, no signs/symptoms concerning for ICH. Plan was to give patient IV reglan however patient requesting narcotics. Explained to patient that reglan is the therapy of choice and we would start with that. Patient initially agreeable and order placed. However patient then abruptly got up from her bed and said her just texted her that her son had an accident and she had to leave. Patient did not wish to wait to sign AMA papers and understood that there were pain medicat ions already ordered for her however she stated she could not stay and eloped from the ED. Discharge - Discharge Information Problems reviewed: Yes Clinical Impression/Diagnosis: Eloped from emergency department Condition: Stable Disposition: ELOPED - Follow up/Referral - Patient Discharge Instructions - Post Discharge Activity
== END 2020-09-01 16:33 | disposition left against medical advice (07) ==
LOC: FER 16:13
PROC: 3E033GC Introduction of Other Therapeutic Substance into Peripheral Vein, Percutaneous Approach (ICD-10-PCS; principal; 2020-09-01)
DX: G43.909 Migraine, unspecified, not intractable, without status migrainosus (principal); Z53.21 Procedure and treatment not carried out due to patient leaving prior to being seen by health care provider
CPT/HCPCS: 99284-25

== ENCOUNTER 2021-02-21 22:00 | Emergency (ER) | payer BC ==
[2021-02-21 22:09] VITALS: BP 135/91; PULSE 82; TEMP 98.1; BMI 25.4
== END 2021-02-21 23:00 | disposition left against medical advice (07) ==
LOC: FER 22:00
DX: G43.909 Migraine, unspecified, not intractable, without status migrainosus (principal); R51.9 Headache, unspecified
CPT/HCPCS: 99283-25

== ENCOUNTER 2021-06-02 18:24 | Emergency (ER) | payer BC ==
[2021-06-02 18:36] VITALS: BP 126/83; PULSE 71; TEMP 98.8; BMI 25.4
[2021-06-02] MEDS ORDERED: METOCLOPRAMIDE HCL INJECTION 10 MG/2 ML VIAL IVPUSH ONE (19:31)
[2021-06-02] MEDS ORDERED: morphine CARPU-JECT 4 MG/1 ML DISP.SYRIN IVPUSH ONE ×2 (19:31→20:20)
[2021-06-02] MEDS ORDERED: SODIUM CHLORIDE 1,000 ML IV ONE (19:32)
== END 2021-06-02 20:53 | disposition home or self-care (01) ==
LOC: FER 18:24
PROC: 3E033GC Introduction of Other Therapeutic Substance into Peripheral Vein, Percutaneous Approach (ICD-10-PCS; principal; 2021-06-02)
PROC: 3E033GC Introduction of Other Therapeutic Substance into Peripheral Vein, Percutaneous Approach (ICD-10-PCS; 2021-06-02)
PROC: 3E033NZ Introduction of Analgesics, Hypnotics, Sedatives into Peripheral Vein, Percutaneous Approach (ICD-10-PCS; 2021-06-02)
PROC: 3E033NZ Introduction of Analgesics, Hypnotics, Sedatives into Peripheral Vein, Percutaneous Approach (ICD-10-PCS; 2021-06-02)
PROC: 3E0337Z Introduction of Electrolytic and Water Balance Substance into Peripheral Vein, Percutaneous Approach (ICD-10-PCS; 2021-06-02)
DX: G43.909 Migraine, unspecified, not intractable, without status migrainosus (principal)
CPT/HCPCS: 99284-25

== ENCOUNTER 2021-07-11 22:48 | Emergency (ER) | payer BC ==
[2021-07-11 22:53] VITALS: BP 0/0; BMI 25.4
[2021-07-11] MEDS ORDERED: METOCLOPRAMIDE HCL INJECTION 10 MG/2 ML VIAL IVPB ONE (23:05)
[2021-07-11] MEDS ORDERED: morphine CARPU-JECT 4 MG/1 ML DISP.SYRIN IVPUSH ONE (23:05)
[2021-07-11] MEDS ORDERED: LACTATED RINGERS SOLUTION 1,000 ML/1,000 ML INFUS.BAG IV STA (23:05)
[2021-07-11] MEDS ORDERED: METOCLOPRAMIDE HCL INJECTION 10 MG/2 ML VIAL ONE (23:15)
== END 2021-07-11 23:40 | disposition left against medical advice (07) ==
LOC: FER 22:48
PROC: 3E033NZ Introduction of Analgesics, Hypnotics, Sedatives into Peripheral Vein, Percutaneous Approach (ICD-10-PCS; principal; 2021-07-11)
PROC: 3E033GC Introduction of Other Therapeutic Substance into Peripheral Vein, Percutaneous Approach (ICD-10-PCS; 2021-07-11)
PROC: 3E033GC Introduction of Other Therapeutic Substance into Peripheral Vein, Percutaneous Approach (ICD-10-PCS; 2021-07-11)
PROC: 3E0337Z Introduction of Electrolytic and Water Balance Substance into Peripheral Vein, Percutaneous Approach (ICD-10-PCS; 2021-07-11)
DX: G43.909 Migraine, unspecified, not intractable, without status migrainosus (principal)
CPT/HCPCS: 99284-25

== ENCOUNTER 2021-07-21 15:29 | Emergency (ER) | payer BC ==
[2021-07-21 17:14] VITALS: BP 130/80; PULSE 72; TEMP 98.2; BMI 25.4
[2021-07-21] MEDS ORDERED: METOCLOPRAMIDE HCL INJECTION 10 MG/2 ML VIAL IVPB ONE (17:26)
[2021-07-21] MEDS ORDERED: ACETAMINOPHEN 1000 MG/100 ML VIAL (NON FORMULARY) IVPB ONE (17:26)
[2021-07-21] MEDS ORDERED: SODIUM CHLORIDE 1,000 ML IV STA (17:26)
== END 2021-07-21 17:35 | disposition left against medical advice (07) ==
LOC: FER 15:29
PROC: 3E033NZ Introduction of Analgesics, Hypnotics, Sedatives into Peripheral Vein, Percutaneous Approach (ICD-10-PCS; principal; 2021-07-21)
PROC: 3E033GC Introduction of Other Therapeutic Substance into Peripheral Vein, Percutaneous Approach (ICD-10-PCS; 2021-07-21)
PROC: 3E033GC Introduction of Other Therapeutic Substance into Peripheral Vein, Percutaneous Approach (ICD-10-PCS; 2021-07-21)
PROC: 3E0337Z Introduction of Electrolytic and Water Balance Substance into Peripheral Vein, Percutaneous Approach (ICD-10-PCS; 2021-07-21)
DX: R51.9 Headache, unspecified (principal)
CPT/HCPCS: 96361; 96374; 96375; 99284-25